=== PATIENT | male | born 1950 | race Caucasian/White ===

== ENCOUNTER 2018-11-10 09:42 | Emergency (ER) | payer OTHER ==
--- NOTE | 2018-11-10 10:53 | ED Physician Chart ---
ED Chief Complaint/HPI - Patient Information Date Seen:: 11/10/18 Time Seen:: 10:48 Chief Complaint:: rt leg swelling History of Present Illness:: 68 yr old male with hx of diabetes who got tip of shoe caught in bottom of door and then banged his knee against the door with pain swelling and now reddness knee area and around . Allergies:: Allergies Allergy/AdvReac Type Severity Reaction Status Date / Time No Known Allergies Allergy Verified 11/10/18 10:41 Vitals:: Vital Signs - 8 hr 11/10/18 10:42 Temp 98.1 F HR 99 RR 18 BP 144/74 O2 Sat % 98 ED Review of Systems - Review of Systems General/Constitutional: No fever, No chills, No weight loss, No weakness, No diaphoresis, No edema, No loss of appetite Skin: Other (reddness and swelling) Head: No headache, No light-headedness Eyes: No loss of vision, No pain, No diplopia ENT: No earache, No nasal drainage, No sore throat, No tinnitus Neck: No neck pain, No swelling, No thyromegaly, No stiffness, No mass noted Cardio Vascular: No chest pain, No palpitations, No PND, No orthopnea, No edema Pulmonary: No SOB, No cough, No sputum, No wheezing GI: No nausea, No vomiting, No diarrhea, No pain, No melena, No hematochezia, No constipation, No hematemesis G/U: No dysuria, No frequency, No hematuria Musculoskeletal: Bone or joint pain Endocrine: No polyuria, No polydipsia Psychiatric: No prior psych history, No depression, No anxiety, No suicidal ideation Hematopoietic: No bruising, No lymphadenopathy Allergic/Immuno: No urticaria, No angioedema Neurological: No syncope, No focal symptoms, No weakness, No paresthesia, No headache, No seizure, No dizziness, No confusion, No vertigo ED Past Medical History - Past Medical History Past Medical History: HTN, DM, Dyslipidemia Surgical History: other (prostate penis surgery) Family Medical History - Family Member Mother Ethnicity: Non- Living Status: Hx Family Cancer: Yes ED Physical Exam - Physical Examination General/Constitutional: Awake, Well-developed, well-nourished, Alert, No distress, GCS 15, Non-toxic appearing, Ambulatory Head: Atraumatic Eyes: Lids, conjuctiva normal, PERRL, EOMI Skin: Nl inspection, No rash, No skin lesions, No ecchymosis, Well hydrated, No lymphadenopathy ENMT: External ears, nose nl, Nasal exam nl, Lips, teeth, gums nl Neck: Nontender, Full ROM w/o pain, No JVD, No nuchal rigidity, No bruit, No mass, No stridor Respiratory: Nl effort/Exclusion, Clear to Auscultation, No Wheeze/Rhonchi/Rales Cardio Vascular: RRR, No murmur, gallop, rubs, NL S1 S2 GI: No tenderness/rebounding/guarding, No organomegaly, No hernia, Normal BS's, Nondistended, No mass/bruits, No McBurney tenderness : No CVA tenderness Extremities: Normal digits & nails Other Extremities comments:: rt knee area reddness swelling with decreased rom rt knee Neuro/Psych: Alert/oriented, DTR's symmetric, Normal sensory exam, Normal motor strength, Judgement/insight normal, Mood normal, Normal gait, No focal deficits Misc: Normal back, No paraspinal tenderness ED Assessment - Assessment General Assessment: rt knee cellulitis and decreased rom rt knee and edema rt knee ED Septic Shock - . Is Septic Shock (SBP<90, OR Lactate>4 mmol\L) present?: No - <6hrs of presentation: Vital Signs: Vital Signs - 8 hr 11/10/18 10:42 Temp 98.1 F HR 99 RR 18 BP 144/74 O2 Sat % 98 ED Reassessment (Disposition) - Reassessment Reassessment:: rt knee trauma cellulitis contusion and decreased rom - Diagnosis Diagnosis:: as above - Aftercare/Follow up Instructions Aftercare/Follow-Up Instructions:: Counseled pt regarding lab results/diagnosis & need follow up Medication Prescribed:: keflex motrin - Patient Disposition Discharge/Transfer:: Home
--- NOTE | 2018-11-11 07:52 | Diagnostic Imaging Report ---
Right lower extremity Doppler venous ultrasound exam HISTORY: Pain/swelling Sonographic sector images were obtained through the deep venous systems of the right leg. Associated Doppler data was obtained. The exam demonstrates patency of the common femoral, superficial femoral, popliteal, and posterior tibial veins. Specifically, no thrombus is seen. There are normal compressibility and augmentation responses. IMPRESSION: Negative exam for deep vein thrombophlebitis.
--- NOTE | 2018-11-11 07:57 | Diagnostic Imaging Report ---
Right knee (3 views) HISTORY: Pain No acute bony abnormalities. No fractures. Minimal spur formation noted about the medial tibial plateau and medial femoral condyle. Narrowing of the patellofemoral joint space with degenerative change. No acute abnormalities. No fractures. IMPRESSION: 1. No acute bony abnormalities 2. Degenerative/chronic changes
== END 2018-11-10 13:11 | disposition home or self-care (01) ==
LOC: ER 09:42
DX: S80.01XA Contusion of right knee, initial encounter (principal); L03.115 Cellulitis of right lower limb; I10 Essential (primary) hypertension; E11.9 Type 2 diabetes mellitus without complications; E78.5 Hyperlipidemia, unspecified; W22.8XXA Striking against or struck by other objects, initial encounter; Y93.89 Activity, other specified; Y92.89 Other specified places as the place of occurrence of the external cause; Y99.8 Other external cause status
CPT/HCPCS: 99284; 96372; 93971; 73560; J0696 ×2